=== PATIENT | male | born 1985 | race Hispanic/Latino ===

== ENCOUNTER 2018-05-20 23:25 | Emergency (ER) | payer OTHER ==
[2018-05-21] MEDS ORDERED: FAMOTIDINE 20MG TAB 20 MG TAB ONE (01:50)
[2018-05-21] MEDS ORDERED: IBUPROFEN 400 MG TABLET ONE (01:50)
[2018-05-21] MEDS ORDERED: DIPHENHYDRAMINE HCL 25 MG CAPSULE ONE (01:50)
== END 2018-05-21 02:09 | disposition home or self-care (01) ==
LOC: EDH 23:25
DX: H10.9 Unspecified conjunctivitis (principal)
CPT/HCPCS: 99284; Q0163

== ENCOUNTER 2020-12-08 09:39 | Inpatient (IN) | payer OTHER ==
[~2020-12-08] VITALS: Ht 172.7 cm; Wt 95.3 kg
[2020-12-08 10:12] LABS: BASOPHILS % (AUTO) 0.3 % (0.0-5.0); EOSINOPHILS % (AUTO) 0.2 % (0.0-8.0); HEMATOCRIT 44.2 % (42-54); LYMPHOCYTES % (AUTO) 12.1 % (21.0-51.0); MEAN CORPUSCULAR HEMOGLOBIN 28.3 pg (27.0-33.0); MEAN CORPUSCULAR HGB CONC 33.3 g/dL (32.0-36.0); MONOCYTES % (AUTO) 6.7 % (3.0-13.0); NEUTROPHILS % (AUTO) 80.2 % (40.0-77.0); PLATELET COUNT (AUTO) 254 K/uL (130-400); RED CELL DISTRIBUTION WIDTH 13.4 % (11.0-15.5); WHITE BLOOD COUNT (AUTO) 12.9 K/uL (4.8-10.8)
[2020-12-08 10:14] LABS: APPEARANCE,URINE Clear (CLEAR); BILIRUBIN,URINE Negative (NEGATIVE); COLOR,URINE Yellow (YELLOW); GLUCOSE, URINE (UA) Negative (NEGATIVE); KETONES,URINE Negative (NEGATIVE); LEUKOCYTE ESTERASE ,URINE Trace (NEGATIVE); NITRATE,URINE Negative (NEGATIVE); OCCULT BLOOD,URINE Negative (NEGATIVE); PH,URINE 6.5 (5.0-8.0); PROTEIN,URINE Negative (NEGATIVE); UROBILINOGEN,URINE 0.2 mg/dL (0.2-1.0)
[2020-12-08 10:25] LABS: ALBUMIN 3.4 g/dL (3.5-5.0); BILIRUBIN,TOTAL 0.5 mg/dL (0.2-1.0); POTASSIUM 4.1 mmol/L (3.5-5.1); TOTAL PROTEIN, SERUM 7.1 g/dL (6.0-8.3)
[2020-12-08 10:26] LABS: BACTERIA,URINE Rare /HPF (None Seen); RBC,URINE None Seen /HPF (0-1); SQUAMOUS EPITHELIAL CELL,UR 0-2 /HPF (0-2); WBC,URINE 0-1 /HPF (0-1)
[2020-12-08] MEDS ORDERED: LEVOFLOXACIN 500 MG/D5W 100 ML 100 ML ONE (11:50)
[2020-12-08] MEDS ORDERED: ACETAMINOPHEN 325 MG TAB PO PRN ×2 (12:15)
[2020-12-08] MEDS ORDERED: MORPHINE 2 MG SYG IV PRN (12:15)
[2020-12-08] MEDS ORDERED: ONDANSETRON 4MG INJ IV PRN (12:15)
[2020-12-08] MEDS ORDERED: LACTULOSE 20 GM/30 ML UDCUP PO PRN (12:15)
[2020-12-08] MEDS: AZITHROMYCIN 250 MG TABLET PO SCH (13:15)
[2020-12-08] MEDS ORDERED: AZITHROMYCIN 500MG+NS 250ML 250 ML IV ONE (13:52)
[2020-12-08 14:56] VITALS: BP 105/68
[2020-12-08] MEDS: ZOSYN 3.375GM+NS 50ML 50 ML IV SCH ×2 (15:26→21:19)
[2020-12-08 20:00] VITALS: BP 107/67
[2020-12-08] MEDS: FAMOTIDINE 20MG TAB PO SCH (21:19)
[2020-12-08] MEDS: KETOROLAC 30MG VIAL (30MG/ML) IV SCH (22:57)
[2020-12-09] VITALS (7 sets, daily range): BP systolic 92–111; BP diastolic 59–70
[2020-12-09] MEDS: ZOSYN 3.375GM+NS 50ML 50 ML IV SCH ×3 (05:33→21:06)
[2020-12-09] MEDS: KETOROLAC 15MG/ML VIAL (15MG/ML) IV SCH ×3 (05:55→18:23)
[2020-12-09 05:59] LABS: BASOPHILS % (AUTO) 0.4 % (0.0-5.0); EOSINOPHILS % (AUTO) 0.9 % (0.0-8.0); HEMATOCRIT 42.5 % (42-54); LYMPHOCYTES % (AUTO) 15.6 % (21.0-51.0); MEAN CORPUSCULAR HEMOGLOBIN 28.1 pg (27.0-33.0); MEAN CORPUSCULAR HGB CONC 32.7 g/dL (32.0-36.0); MEAN CORPUSCULAR VOLUME 85.9 fL (79-99); MONOCYTES % (AUTO) 8.4 % (3.0-13.0); NEUTROPHILS % (AUTO) 73.8 % (40.0-77.0); PLATELET COUNT (AUTO) 259 K/uL (130-400); RED BLOOD CELL COUNT(AUTO) 4.95 MIL/uL (4.50-6.20); RED CELL DISTRIBUTION WIDTH 13.3 % (11.0-15.5); WHITE BLOOD COUNT (AUTO) 11.7 K/uL (4.8-10.8)
[2020-12-09 06:10] LABS: POTASSIUM 4.3 mmol/L (3.5-5.1)
[2020-12-09 06:20] LABS: CREATININE 1.2 mg/dL (0.5-1.5)
[2020-12-09] MEDS: ENOXAPARIN SODIUM 40 MG/0.4 ML SYRINGE SQ SCH (09:00)
[2020-12-09] MEDS: FAMOTIDINE 20MG TAB PO SCH ×2 (09:38→21:06)
[2020-12-09] MEDS ORDERED: LEVOFLOXACIN 500 MG/D5W 100 ML 100 ML IV SCH (12:15)
[2020-12-09] MEDS: AZITHROMYCIN 250 MG TABLET PO SCH (13:51)
[2020-12-09] MEDS: KETOROLAC 30MG VIAL (30MG/ML) IV SCH (22:44)
[2020-12-10] MEDS: KETOROLAC 15MG/ML VIAL (15MG/ML) IV SCH ×3 (00:11→12:08)
[2020-12-10 03:50] VITALS: BP 93/62
[2020-12-10] MEDS: ZOSYN 3.375GM+NS 50ML 50 ML IV SCH (06:02)
[2020-12-10 06:11] LABS: BASOPHILS % (AUTO) 0.5 % (0.0-5.0); EOSINOPHILS % (AUTO) 1.3 % (0.0-8.0); HEMATOCRIT 41.6 % (42-54); LYMPHOCYTES % (AUTO) 23.6 % (21.0-51.0); MEAN CORPUSCULAR HEMOGLOBIN 28.4 pg (27.0-33.0); MEAN CORPUSCULAR HGB CONC 32.9 g/dL (32.0-36.0); MEAN CORPUSCULAR VOLUME 86.3 fL (79-99); MONOCYTES % (AUTO) 7.4 % (3.0-13.0); NEUTROPHILS % (AUTO) 66.2 % (40.0-77.0); PLATELET COUNT (AUTO) 305 K/uL (130-400); RED BLOOD CELL COUNT(AUTO) 4.82 MIL/uL (4.50-6.20); RED CELL DISTRIBUTION WIDTH 13.4 % (11.0-15.5); WHITE BLOOD COUNT (AUTO) 8.4 K/uL (4.8-10.8)
[2020-12-10 06:17] LABS: CREATININE 1.1 mg/dL (0.5-1.5); POTASSIUM 5.2 mmol/L (3.5-5.1)
[2020-12-10 08:10] VITALS: BP 101/63
[2020-12-10] MEDS: ENOXAPARIN SODIUM 40 MG/0.4 ML SYRINGE SQ SCH (08:54)
[2020-12-10] MEDS: FAMOTIDINE 20MG TAB PO SCH (08:54)
[2020-12-10 11:31] LABS: CREATININE 1.2 mg/dL (0.5-1.5); POTASSIUM 4.2 mmol/L (3.5-5.1)
[2020-12-10 12:00] VITALS: BP 102/68
[2020-12-10] MEDS: AZITHROMYCIN 250 MG TABLET PO SCH (12:07)
[2020-12-10] MEDS ORDERED: AZIT500T4 PO (14:50)
[2020-12-10] MEDS ORDERED: CEFU500T67 PO (14:50)
[2020-12-12 22:08] LABS: CHLAMYDIA DNA N.A.AMPLIFY Negative (Negative)
== END 2020-12-10 15:00 | disposition home or self-care (01) | DRG 728 ==
LOC: EDH 09:39 → EDHIP 12:01 → 3BH 14:36
PROVIDERS: ADMIT Internal Medicine; ATTEND Internal Medicine
DX: N45.3 Epididymo-orchitis (principal); D72.829 Elevated white blood cell count, unspecified; E66.9 Obesity, unspecified; G89.29 Other chronic pain; R74.02 Elevation of levels of lactic acid dehydrogenase [LDH]; Z68.31 Body mass index [BMI] 31.0-31.9, adult; Z87.440 Personal history of urinary (tract) infections; Z53.29 Procedure and treatment not carried out because of patient's decision for other reasons
CPT/HCPCS: 36415; 76870; 80048; 80053; 81001; 83605; 85025; 87040; 87088; 87486; 87797; G0378; J0456; J1650; J1885; J1956; J2543

== ENCOUNTER 2020-12-19 04:27 | Emergency (ER) | payer OTHER ==
[~2020-12-19 04:27] MED LIST: AZIT500T4 PO; CEFU500T67 PO
[2020-12-19 05:35] LABS: BASOPHILS % (AUTO) 0.2 % (0.0-5.0); HEMATOCRIT 43.3 % (42-54); LYMPHOCYTES % (AUTO) 5.9 % (21.0-51.0); MEAN CORPUSCULAR HEMOGLOBIN 29.2 pg (27.0-33.0); MEAN CORPUSCULAR HGB CONC 34.6 g/dL (32.0-36.0); MEAN CORPUSCULAR VOLUME 84.2 fL (79-99); MONOCYTES % (AUTO) 4.9 % (3.0-13.0); NEUTROPHILS % (AUTO) 88.6 % (40.0-77.0); PLATELET COUNT (AUTO) 326 K/uL (130-400); RED BLOOD CELL COUNT(AUTO) 5.14 MIL/uL (4.50-6.20); RED CELL DISTRIBUTION WIDTH 13.2 % (11.0-15.5); WHITE BLOOD COUNT (AUTO) 18.2 K/uL (4.8-10.8)
[2020-12-19 05:44] LABS: CREATININE 0.9 mg/dL (0.5-1.5); POTASSIUM 4.3 mmol/L (3.5-5.1)
[2020-12-19 05:52] LABS: ALBUMIN 3.9 g/dL (3.5-5.0); BILIRUBIN,TOTAL 0.6 mg/dL (0.2-1.0); TOTAL PROTEIN, SERUM 7.8 g/dL (6.0-8.3)
[2020-12-19 06:43] LABS: APPEARANCE,URINE Clear (CLEAR); BILIRUBIN,URINE Negative (NEGATIVE); COLOR,URINE Yellow (YELLOW); GLUCOSE, URINE (UA) Negative (NEGATIVE); KETONES,URINE Negative (NEGATIVE); LEUKOCYTE ESTERASE ,URINE Trace (NEGATIVE); NITRATE,URINE Negative (NEGATIVE); OCCULT BLOOD,URINE Negative (NEGATIVE); PROTEIN,URINE Negative (NEGATIVE); UROBILINOGEN,URINE 0.2 mg/dL (0.2-1.0)
[2020-12-19] MEDS ORDERED: KETOROLAC TROMETHAMINE 30MG/ML ONE (06:45)
[2020-12-19 07:08] LABS: BACTERIA,URINE Rare /HPF (None Seen); RBC,URINE 0-1 /HPF (0-1); SQUAMOUS EPITHELIAL CELL,UR Few /HPF (0-2); WBC,URINE 0-1 /HPF (0-1)
[2020-12-19] MEDS ORDERED: CEFTRIAXONE SODIUM 1 GM ONE (07:15)
== END 2020-12-19 07:47 | disposition home or self-care (01) ==
LOC: EDH 04:27
DX: N45.1 Epididymitis (principal)
CPT/HCPCS: 36415; 76870; 80053; 81001; 85025; 96374; 96375; 99284; J0696; J1885